=== PATIENT | female | born 1995 | race Caucasian/White ===

== ENCOUNTER 2018-08-23 01:29 | Emergency (ER) | payer BC ==
[2018-08-23 01:44] VITALS: RESP 18
--- NOTE | 2018-08-23 01:46 | ED ---
Psych HPI - General Source: patient, RN notes reviewed, old records reviewed Mode of arrival: ambulatory - History of Present Illness Complaint: suicidal ideation, feels depressed -: unknown Associated Psychiatric Symptoms: depression, suicidal ideation History of same: No Quality: constant Improves With: none Worsens With: none Associated Symptoms: denies other symptoms Treatments Prior to Arrival: none If Self Harm: admits thoughts of self harm, has plan <Gildardo Chapman - Last Filed: 08/23/18 04:38> <Ariel Oden - Last Filed: 08/23/18 10:34> - General Chief Complaint: Psychiatric Symptoms Stated Complaint: Suicidal Time Seen by Provider: 08/23/18 01:37 - History of Present Illness Initial Comments: This is a 23-year-old female the ER for psychiatric evaluation. Patient's brought in by PD petitioning for evaluation by psychiatry, she verbal altercation with Kim MANZO and stated shortly can associate regarding in regards to try to kill herself tonight. She is petition again for psychiatric evaluation. Patient states she is , she does admit to self-harm ( Gildardo Chapman) - Related Data Allergies Allergy/AdvReac Type Severity Reaction Status Date / Time Sulfa (Sulfonamide Allergy Unknown Verified 08/23/18 01:44 Antibiotics) Review of Systems ROS Other: All systems not noted in ROS Statement are negative. <Gildardo Chapman - Last Filed: 08/23/18 04:38> ROS Other: All systems not noted in ROS Statement are negative. <Ariel Oden - Last Filed: 08/23/18 10:34> ROS Statement: Those systems with pertinent positive or pertinent negative responses have been documented in the HPI. Past Medical History Past Medical History: No Reported History History of Any Multi-Drug Resistant Organisms: None Reported Past Surgical History: No Surgical Hx Reported Past Psychological History: No Psychological Hx Reported Smoking Status: Never smoker Past Alcohol Use History: None Reported Past Drug Use History: None Reported <Gildardo Chapman - Last Filed: 08/23/18 04:38> General Exam Limitations: no limitations General appearance: alert, in no apparent distress Head exam: Present: atraumatic, normocephalic, normal inspection Eye exam: Present: normal appearance, PERRL, EOMI. Absent: scleral icterus, conjunctival injection, periorbital swelling ENT exam: Present: normal exam, mucous membranes moist Neck exam: Present: normal inspection. Absent: tenderness, meningismus, lymphadenopathy Respiratory exam: Present: normal lung sounds bilaterally. Absent: respiratory distress, wheezes, rales, rhonchi, stridor Cardiovascular Exam: Present: regular rate, normal rhythm, normal heart sounds. Absent: systolic murmur, diastolic murmur, rubs, gallop, clicks GI/Abdominal exam: Present: soft, normal bowel sounds. Absent: distended, tenderness, guarding, rebound, rigid Extremities exam: Present: normal inspection, full ROM, normal capillary refill. Absent: tenderness, pedal edema, joint swelling, calf tenderness Back exam: Present: normal inspection Neurological exam: Present: alert, oriented X3, CN II-XII intact Psychiatric exam: Present: normal affect, normal mood Skin exam: Present: warm, dry, intact, normal color. Absent: rash <Gildardo Chapman - Last Filed: 08/23/18 04:38> Course <Gildardo Chapman - Last Filed: 08/23/18 04:38> <Ariel Oden - Last Filed: 08/23/18 10:34> Vital Signs 08/23/18 08/23/18 01:38 07:37 Temperature 98.2 F Pulse Rate 97 79 Respiratory 18 18 Rate Blood Pressure 113/69 118/56 O2 Sat by Pulse 100 99 Oximetry - Reevaluation(s) Reevaluation #1: 08/23/18 04:38 Medical clear for psychiatric evaluation (Gildardo Chapman) Medical Decision Making <Gildardo Chapman - Last Filed: 08/23/18 04:38> <Ariel Oden - Last Filed: 08/23/18 10:34> - Medical Decision Making The patient was endorsed me by Dr. Chapman at our shift change pending psychiatric evaluation. Patient was evaluated by psychiatric service she currently is on a resource of renal else she denies suicidal or homicidal ideation to be discharged outpatient planning. The ultrasound did show evidence of an IUP in the early stages. (Ariel Oden) - Lab Data Lab Results 08/23/18 Range/Units 03:07 Urine HCG, Qual Detected (Not Detectd) Disposition <Gildardo Chapman - Last Filed: 08/23/18 04:38> Is patient prescribed a controlled substance at d/c from ED?: No <Ariel Oden - Last Filed: 08/23/18 10:34> Clinical Impression: Depression, Adjustment reaction, Intrauterine Disposition: HOME SELF-CARE Condition: Good Instructions: Depression (ED), Mood Disorders (ED), (ED) Referrals: Breann Gay DO [Primary Care Provider] - 1-2 days
--- NOTE | 2018-08-23 07:43 | US ---
EXAMINATION TYPE: Transabdominal DATE OF EXAM: 01/07/18 COMPARISON: NONE CLINICAL HISTORY: Pain. EXAM PERFORMED: Transvaginal (TV) and Transabdominal (TA) EXAM MEASUREMENTS: GESTATIONAL AGE / DATING Physician Established: not established yet Dates by LMP: (5 weeks/6 days) EDC: 04/19/2019 Dates by First Scan: no previous Dates by Current Scan: no pole seen on today's scan MATERNAL ANATOMY Uterus: 8.1 x 5.4 x 8.0cm Right Ovary: no seen Left Ovary: 2.8 x 2.1 x 3.2cm Small amount of free fluid seen within the post cds. GESTATION / SURVEY CRL: not seen MSD: 1.5cm (5 weeks/6 days) Yolk Sac (normal less than 6mm): 3mm IMPRESSION: Intrauterine gestational sac with yolk sac. This is consistent with early intrauterine of l ess than 6 weeks. Follow-up exam is recommended in 14 days to confirm a living fetus. No evidence of ectopic . Small amount of free fluid in the cul-de-sac.
[2018-08-23 11:03] VITALS: BP 118/66; PULSE 18; TEMP 97.1
== END 2018-08-23 11:01 | disposition home or self-care (01) ==
LOC: EC 01:29
DX: O99.341 Other mental disorders complicating pregnancy, first trimester (principal); F32.9 Major depressive disorder, single episode, unspecified; F43.20 Adjustment disorder, unspecified; Z3A.01 Less than 8 weeks gestation of pregnancy; Z88.2 Allergy status to sulfonamides
CPT/HCPCS: 76801; 76817; 81025; 82075; 99285

== ENCOUNTER 2019-04-04 19:58 | Outpatient (CLI) | payer BC ==
[2019-04-04 22:24] VITALS: BP 134/78; PULSE 76; RESP 18; TEMP 97.3
--- NOTE | 2019-04-21 09:16 | P.MSEPDOC ---
Presenting Problems - Arrival Data Date of Arrival on Unit: 04/04/19 Time of Arrival on Unit: 19:58 Mode of Transport: Ambulatory - Complaint OB-Reason for Admission/Chief Complaint: Possible Onset of Labor Comment: back pain and contractions every 5-10 per pt. Medical History - Information : 1 Para: 0 Term: 0 : 0 Abortions: Spontaneous or Elective: 0 Number of Living Children: 0 - Gestational Age Gestational Age by RAMIN (wks/days): 37 Weeks and 5 Days Review of Systems - Review of Systems Constitutional: No problems Breast: No problems ENT: No problems Cardiovascular: No problems Respiratory: No problems Gastrointestinal: No problems Genitourinary: No problems Musculoskeletal: No problems Neurological: No problems Skin: No problems Vital Signs - Temperature Temperature: 97.3 F Temperature Source: Temporal Artery Scan - Pulse Left Pulse Rate: 76 Pulse Assessment Method: Pulse Oximetry - Respirations Respiratory Rate: 18 Oxygen Delivery Method: Room Air O2 Sat by Pulse Oximetry: 99 - Blood Pressure Right Arm Blood Pressure: 134/78 Blood Pressure Mean: 96 Blood Pressure Source: Automatic Cuff Medical Screen Scoring (Pre) - Cervical Exam Dilation: 0 cm = 0 Effacement: Exam Deferred Membranes: Intact - Uterine Contractions Frequency: N/A Duration: N/A Intensity: N/A - Maternal Vital Signs Maternal Temperature: N/A Maternal Blood Pressure: N/A Signs of Preeclampsia: N/A Maternal Respirations: N/A - Maternal Trauma Maternal Trauma: N/A - Assessment - Baby A Baseline FHR: 130 Heart Rate - NICHD Category: Category I (Normal) = 0 NST: Reactive Position: N/A Station: N/A - Total Score - Baby A Total Score - Baby A: 0 - Total Score - Baby B Total Score - Baby B: 0 - Total Score - Baby C Total Score - Baby C: 0 - Level of Risk - Baby A Level of Risk - Baby A: Low (0-5) - Level of Risk - Baby B Level of Risk - Baby B: Low (0-5) - Level of Risk - Baby C Level of Risk - Baby C: Low (0-5) Physician Notification (Pre) - Physician Notified Physician Notified Date: 04/04/19 Physician Notified Time: 20:06 Physician/Practitioner Notifed:: Dr. Lazcano Spoke With: Dr. Lazcano New Order Received: Yes (recheck cervical exam in 1 hour.) Medical Screen Scoring (Post) - Cervical Exam Dilation: 0 cm = 0 Effacement: Exam Deferred Membranes: Intact - Uterine Contractions Frequency: N/A Duration: N/A Intensity: N/A - Maternal Vital Signs Maternal Temperature: N/A Maternal Blood Pressure: N/A Signs of Preeclampsia: N/A Maternal Respirations: N/A - Pain Assessment Pain Location and Character: Abdomen Pain Intensity: 2 Pain Management Goal: 0 Pain Description: *Acute, Cramping Pain Frequency: Occasional Pain Duration Units: Minutes Pain Behavior: Vocalization Pain Aggravating Factors: Contractions Non-Pharmacological Interventions: Darkened Room, Distraction, Environmental Control, Inactivity, Position/Reposition, Relaxation Technique - Maternal Trauma Maternal Trauma: N/A - Assessment - Baby A Heart Rate: 135 Heart Rate - NICHD Category: Category I (Normal) = 0 NST: Reactive Position: N/A Station: N/A - Total Score Total Score - Baby A: 0 Total Score - Baby B: 0 Total Score - Baby C: 0 - Post Treatment Level of Risk Post Treatment Level of Risk - Baby A: Low (0-5) Post Treatment Level of Risk - Baby B: Low (0-5) Post Treatment Level of Risk - Baby C: Low (0-5) Physician Notification (Post) - Physician Notified Physician Notified Date: 04/04/19 Physician Notified Time: 21:20 Physician/Practitioner Notified:: Dr. Lazcano Spoke With: Dr. Lazcano New Order Received: Yes (follow up instructions) Disposition - Disposition OB Disposition: Discharge to home Discharge Date: 04/04/19 Discharge Time: 21:20 I agree with the RN Medical Screening Exam: Yes Risk & Benefit of care provided described in d/c instruction: Yes Diagnosis: FALSE LABOR AT OR AFTER 37 COMPLETED WEEKS OF GESTATION
== END 2019-04-04 21:20 | disposition home or self-care (01) ==
LOC: FBPOP 19:58
PROVIDERS: ATTEND Obstetrics & Gynecology Obstetrics
DX: O47.1 False labor at or after 37 completed weeks of gestation (principal); Z3A.37 37 weeks gestation of pregnancy
CPT/HCPCS: 59025; 99213

== ENCOUNTER 2019-04-14 06:00 | Inpatient (IN) | payer BC ==
[2019-04-14] MEDS ORDERED: ceFAZolin IN SWFI 2 GM/20 ML SYRINGE IVP ONE (10:17)
[2019-04-14] MEDS ORDERED: CITRIC ACID-SODIUM CITRATE 15 ML CUP PO ONE (10:17)
[2019-04-14] MEDS: LACTATED RINGERS 1,000 ML IV SCH ×3 (10:30→21:23)
[2019-04-14 10:55] LABS: Basophils % (A) 0 %; Eosinophils # (A) 0.1 k/uL (0-0.7); Eosinophils % (A) 1 %; HCT 33.4 % (34.0-46.0); HGB 11.1 gm/dL (11.4-16.0); Lymphocytes # (A) 1.4 k/uL (1.0-4.8); Lymphocytes % (A) 19 %; MCH 29.1 pg (25.0-35.0); MCHC 33.3 g/dL (31.0-37.0); MCV 87.5 fL (80.0-100.0); Mean Platelet Volume 8.7; Monocytes # (A) 0.5 k/uL (0-1.0); Monocytes % (A) 6 %; Neutrophils # (A) 5.5 k/uL (1.3-7.7); Neutrophils % (A) 72 %; Platelet Count 217 k/uL (150-450); RBC 3.82 m/uL (3.80-5.40); RDW 14.1 % (11.5-15.5); WBC 7.7 k/uL (3.8-10.6)
[2019-04-14] MEDS ORDERED: ePHEDrine SULFATE/0.9% NACL/PF 50 MG/5 ML SYRINGE IV ONE (12:03)
[2019-04-14] MEDS ORDERED: NALBUPHINE 10 MG/ML (1 ML AMP) ONE (12:03)
[2019-04-14] MEDS ORDERED: MORPHINE SULFATE (PF) 0.3 MG/0.3 ML SYR ONE (12:03)
[2019-04-14] MEDS ORDERED: LACTATED RINGERS 1,000 ML BAG IV ONE (12:03)
[2019-04-14] MEDS ORDERED: ONDANSETRON 4 MG/2 ML VIAL ONE (12:03)
[2019-04-14] MEDS ORDERED: OXYTOCIN 10 UNIT/ML 1 ML VIAL ONE (12:03)
[2019-04-14] MEDS ORDERED: diphenhydrAMINE 25 MG CAP PO PRN (12:48)
[2019-04-14] MEDS ORDERED: ZOLPIDEM 5 MG TAB PO PRN (12:48)
[2019-04-14] MEDS ORDERED: ONDANSETRON 4 MG/2 ML VIAL IVP PRN (12:48)
[2019-04-14] MEDS ORDERED: METOCLOPRAMIDE 5 MG/ML 2 ML VIAL IVP PRN (12:48)
[2019-04-14] MEDS ORDERED: NALOXONE 0.4 MG/ML 1 ML VIAL IV PRN (12:48)
[2019-04-14] MEDS ORDERED: ACETAMINOPHEN TAB 325 MG TAB PO PRN (12:48)
[2019-04-14] MEDS ORDERED: diphenhydrAMINE 50 MG CAP PO PRN (12:48)
[2019-04-14] MEDS ORDERED: diphenhydrAMINE 50 MG/ML 1 ML VIAL IVP PRN ×2 (12:48)
--- NOTE | 2019-04-14 12:51 | P.HPOB ---
History of Present Illness H&P Date: 04/14/19 Chief Complaint: IUP at 39 and 1/sevenths weeks, breech presentation This is a pleasant 23-year-old 2 para 0010 at 39 and one sevenths weeks that presents to labor and delivery for primary secondary to breech presentation. Patient was seen in the office yesterday on physical exam the lower uterine segment was noted to be empty with no presenting part. Ultrasound confirmed breech presentation. Patient is noting good movement she denies contractions or vaginal bleeding. Her cervix was not dilated yesterday. Patient has been receiving routine care with myself. Patient has a known diagnosis of autism but is high functioning. care has been essentially uncomplicated despite having some social issues. On blood work she has a blood type of A+, rubella immune, hepatitis B surface antigen negative, HIV negative, RPR nonreactive, GBS positive. Review of Systems Constitutional: Denies chills, Denies fatigue, Denies fever Ears, nose, mouth and throat: Denies headache Cardiovascular: Reports leg edema Respiratory: Denies cough, Denies dyspnea Gastrointestinal: Denies constipation, Denies diarrhea, Denies nausea, Denies vomiting Genitourinary: Reports Past Medical History Past Medical History: Asthma History of Any Multi-Drug Resistant Organisms: None Reported Past Surgical History: No Surgical Hx Reported Additional Past Surgical History / Comment(s): wisom teeth extracted in 2010. Past Anesthesia/Blood Transfusion Reactions: No Reported Reaction Past Psychological History: No Psychological Hx Reported Additional Psychological History / Comment(s): autism spectrum disorder Smoking Status: Never smoker Past Alcohol Use History: None Reported Past Drug Use History: None Reported - Past Family History Mother Family Medical History: Cancer Additional Family Medical History / Comment(s): breast Father Family Medical History: Diabetes Mellitus, Hypertension Medications and Allergies Home Medications Medication Instructions Recorded Confirmed Type Pnv 11/Iron Fum/Folic Acid/Om3 1 cap PO DAILY 04/04/19 04/04/19 History [Virt-Loyd Dha Softgel] Allergies Allergy/AdvReac Type Severity Reaction Status Date / Time Sulfa (Sulfonamide Allergy Unknown Verified 04/04/19 20:10 Antibiotics) sulfamethoxazole Allergy FEVER Verified 04/04/19 20:10 [From Bactrim] trimethoprim [From Bactrim] Allergy FEVER Verified 04/04/19 20:10 milk AdvReac Diarrhea Verified 04/04/19 20:11 Exam Osteopathic Statement: *. No significant issues noted on an osteopathic structural exam other than those noted in the History and Physical/Consult. Vital Signs Temp Pulse Resp BP Pulse Ox 04/14/19 10:10 98.2 F 73 18 121/74 99 Intake and Output 04/13/19 04/14/19 04/14/19 22:59 06:59 14:59 Output Total 550 Balance -550 Output: Urine 550 Other: Weight 93.6 kg Tardive physical exam is performed and the state in general this is a well- nourished well-developed female in no acute distress. Her breathing is noted to be nonlabored and her heart has a regular rate and rhythm her abdomen is gravid and appropriate for gestational age. Cervical exam is deferred as she was closed yesterday. heart tones are be category 1 and she is not domingo. Results Result Diagrams: 04/14/19 10:37 Abnormal Lab Results - Last 24 Hours (Table) 04/14/19 Range/Units 10:37 Hgb 11.1 L (11.4-16.0) gm/dL Hct 33.4 L (34.0-46.0) % Assessment and Plan (1) Term Current Visit: Yes Status: Acute Code(s): Z34.90 - ENCNTR FOR SUPRVSN OF NORMAL , UNSP, UNSP TRIMESTER SNOMED Code(s): 25277081 (2) Breech presentation Current Visit: Yes Status: Acute Code(s): O32.1XX0 - MATERNAL CARE FOR BREECH PRESENTATION, UNSP SNOMED Code(s): 2748621
[2019-04-14] MEDS ORDERED: IBUPROFEN IV 800 MG in SODIUM CHLORIDE 0.9% 250 ML IV ONE (12:56)
--- NOTE | 2019-04-14 12:56 | P.OP ---
Date of Procedure: 04/14/19 Preoperative Diagnosis: IUP at 39 and 1/sevenths weeks, breech presentation Postoperative Diagnosis: Same with transverse presentation noted at delivery Procedure(s) Performed: Primary low transverse section Anesthesia: spinal Surgeon: Jewels Lazcano Social Insurance Administrator #1: Amirah Gibbons Estimated Blood Loss (ml): 800 IV fluids (ml): 1,000 Urine output (ml): 100 Pathology: none sent Condition: stable Disposition: observation Indications for Procedure: Unstable lie Operative Findings: Uterus was noted midline septum, normal ovaries were appreciated bilaterally. On entering the abdominal cavity of the lower uterine segment was noted to be empty the head was noted to be in the right lateral corner. Description of Procedure: Patient was taken back to the operating suite where spinal anesthesia was performed by the anesthesia department. She was prepped and draped in normal sterile fashion in the dorsal supine position. A Parra catheter was placed under sterile technique prior to entering the operating suite. A Pfannenstiel skin incision was made with the scalpel and carried through to the underlying layer of fascia. The fascia was incised in the midline and the incision was extended laterally. The anterior aspect of the fascial incision was then grasped koher clamps, elevated and underlying rectus muscles were dissected sharply off of the fascia. The inferior aspect of the fascial incision was grasped grasped koher clamps, elevated and underlying rectus muscle was dissected off sharply once again. The rectus muscles were in the midline and peritoneum was identified and entered. The incision was then extended superiorly and inferiorly with good visualization of the bladder. The bladder blade was then inserted into the abdominal cavity. The vesicouterine peritoneum was identified and a bladder flap was created using sharp dissection. A scalpel was then used to make a hysterotomy incision, and the was then encountered in a transverse presentation converted to a vertex presentation delivered through the hysterotomy incision. The umbilical cord was then doubly clamped and cut and handed off to awaiting RN. The placenta was then delivered manually. The uterus was then delivered from the abdomen and cleared of all clots and debris with a laparotomy sponge. The hysterotomy incision was then closed with 0 Vicryl in a running locked fashion from one lateral edge the other lateral edge a second suture was used to obtain hemostasis. The pelvis was then copiously irrigated the uterus was then returned to the abdomen hemostasis was appreciated once again. The fascial incision was then closed with 0 Vicryl in a running fashion from one lateral edge the other lateral edge. Subcu taste tissue was then irrigated and hemostatic. This was then closed with 3-0 Vicryl. The skin was then closed with 4-0 Vicryl in a subarticular fashion. Steri- Strips and sterile dressings were applied. All counts were correct 2 patient tolerated procedure well and was taken back to her room.
[2019-04-14] MEDS ORDERED: OXYTOCIN 20 UNITS/1000 ML NS 1,000 ML IV SCH (13:00)
[2019-04-14] MEDS ORDERED: ACETAMINOPHEN IV (For NPO) 1,000 MG in EMPTY BAG 1 BAG IVPB ONE (13:30)
[2019-04-14] MEDS: IBUPROFEN 600 MG TAB PO PRN (21:23)
[2019-04-14] MEDS: SENNOSIDES-DOCUSATE SODIUM 1 EACH TAB PO SCH (21:23)
[2019-04-15] MEDS: LACTATED RINGERS 1,000 ML IV SCH ×4 (00:43→19:53)
[2019-04-15] MEDS: IBUPROFEN 600 MG TAB PO PRN ×3 (06:34→19:46)
[2019-04-15 06:58] LABS: Basophils % (A) 0 %; Eosinophils # (A) 0.1 k/uL (0-0.7); Eosinophils % (A) 2 %; HCT 28.8 % (34.0-46.0); Lymphocytes # (A) 1.7 k/uL (1.0-4.8); Lymphocytes % (A) 19 %; MCH 29.3 pg (25.0-35.0); MCHC 33.4 g/dL (31.0-37.0); MCV 87.9 fL (80.0-100.0); Mean Platelet Volume 8.7; Monocytes # (A) 0.4 k/uL (0-1.0); Monocytes % (A) 4 %; Neutrophils # (A) 6.2 k/uL (1.3-7.7); Neutrophils % (A) 73 %; Platelet Count 176 k/uL (150-450); RBC 3.27 m/uL (3.80-5.40); RDW 13.9 % (11.5-15.5); WBC 8.5 k/uL (3.8-10.6)
[2019-04-15 07:27] LABS: HGB 9.6 gm/dL (11.4-16.0)
[2019-04-15] MEDS: SENNOSIDES-DOCUSATE SODIUM 1 EACH TAB PO SCH ×2 (07:54→19:45)
[2019-04-15] MEDS: HYDROcodone/APAP 5-325MG 1 EACH TAB PO PRN ×3 (07:55→22:52)
--- NOTE | 2019-04-15 08:22 | P.PNOBGPC ---
Subjective - Subjective Principal diagnosis: POD 1 LTCS Interval history: Patient is feeling well postoperatively. She is ambulating and voiding without difficulty. She states her pain is well-controlled. She denies concerns. She is breast-feeding without difficulty. Her lochia is minimal. Patient reports: Reports appetite normal, Reports voiding normally, Reports pain well controlled, Reports ambulating normally : doing well Objective - Vital Signs Latest vital signs: Vital Signs Temp Pulse Pulse Resp BP Pulse Ox 04/15/19 04:00 97.6 F 145 H 16 04/15/19 00:00 98.0 F 68 18 121/72 04/14/19 20:00 98.3 F 82 13 122/53 04/14/19 16:00 98.3 F 64 16 125/66 98 04/14/19 14:45 65 16 124/67 04/14/19 14:15 63 16 118/55 100 04/14/19 13:45 96.4 F L 68 16 135/62 99 04/14/19 13:30 71 16 134/61 100 04/14/19 13:15 80 16 129/77 98 04/14/19 13:00 77 16 125/80 98 04/14/19 12:45 96.7 F L 82 18 117/55 98 04/14/19 10:10 98.2 F 73 18 121/74 99 Intake and Output 04/14/19 04/15/19 04/15/19 22:59 06:59 14:59 Intake Total 400 800 Output Total 800 Balance 400 0 Intake: IV 400 ACETAMINOPHEN IV (For NPO 400 ) 1,000 mg In Empty Bag 1 bag @ 400 mls/hr IVPB ONCE ONE Rx#:[id number] Oral 800 Output: Urine 800 Other: Voiding Method Indwelling Catheter Indwelling Catheter # Voids 1 - Exam Extremities: Present: normal, edema Abdomen: Present: normal appearance, soft Incision: Present: normal, intact Uterus: Present: normal, firm - Labs Labs: Abnormal Lab Results - Last 24 Hours (Table) 04/14/19 04/15/19 Range/Units 10:37 06:30 RBC 3.27 L (3.80-5.40) m/uL Hgb 11.1 L 9.6 L D (11.4-16.0) gm/dL Hct 33.4 L 28.8 L (34.0-46.0) % Assessment and Plan (1) Term Current Visit: Yes Status: Acute Code(s): Z34.90 - ENCNTR FOR SUPRVSN OF NORMAL , UNSP, UNSP TRIMESTER SNOMED Code(s): 95740667 (2) Breech presentation Current Visit: Yes Status: Acute Code(s): O32.1XX0 - MATERNAL CARE FOR BREECH PRESENTATION, UNSP SNOMED Code(s): 1300478 (3) S/P section Current Visit: Yes Status: Acute Code(s): Z98.891 - HISTORY OF UTERINE SCAR FROM PREVIOUS SURGERY SNOMED Code(s): 264461245 Plan: We'll continue routine postoperative care and anticipate discharge home tomorrow.
[2019-04-15] MEDS ORDERED: PRENATAL VIT-IRON-FOLIC ACID 1 EACH CAP PO SCH (09:00)
--- NOTE | 2019-04-15 13:01 | P.PN ---
Progress Note - Text Progress Note Date: 04/15/19 Postoperative day 1 status post section under spinal anesthesia, and intrathecal morphine given for postoperative analgesia, patient doing well, there is no anesthesia related complications, Patient had no headache, vital signs stable , Assessment and plan= postop day 1 status post , doing well there is no anesthesia related complication.
[2019-04-16 00:10] VITALS: RESP 16
[2019-04-16] MEDS: IBUPROFEN 600 MG TAB PO PRN ×3 (03:04→14:57)
[2019-04-16] MEDS: HYDROcodone/APAP 5-325MG 1 EACH TAB PO PRN ×2 (05:30→13:03)
[2019-04-16 08:19] VITALS: BP 121/76; PULSE 75; TEMP 98.1
[2019-04-16] MEDS: SENNOSIDES-DOCUSATE SODIUM 1 EACH TAB PO SCH (08:41)
--- NOTE | 2019-04-16 08:44 | P.DS ---
Providers Date of admission: 04/14/19 10:04 Expected date of discharge: 04/16/19 Attending physician: Jewels Lazcano Primary care physician: Stated None - Discharge Diagnosis(es) (1) Term Current Visit: Yes Status: Acute (2) Breech presentation Current Visit: Yes Status: Acute (3) S/P section Current Visit: Yes Status: Acute Hospital Course: This is a pleasant 23-year-old 2 para 0010 that presented to labor and delivery at 39 and one sevenths weeks and breech presentation. Patient was taken for primary secondary to malpresentation. was performed without difficulty for further details on the please see the operative report. Patient's postoperative course has been uneventful. She is ambulating and voiding without difficulty. She is tolerating a regular diet without nausea or vomiting. She is proceeding without difficulty. She states her pain is controlled with oral pain medication she denies concerns currently and wishes discharge home Patient Condition at Discharge: Good Plan - Discharge Summary New Discharge Prescriptions: No Action Pnv 11/Iron Fum/Folic Acid/Om3 [Virt-Loyd Dha Softgel] 1 cap PO DAILY Discharge Medication List Pnv 11/Iron Fum/Folic Acid/Om3 [Virt-Loyd Dha Softgel] 1 cap PO DAILY 04/04/19 [History] Follow up Appointment(s)/Referral(s): Jewels Lazcano DO [Doctor of Osteopathic Medicine] - 2 Weeks Patient Instructions/Handouts: (DC), (GEN) Discharge Disposition: HOME SELF-CARE
== END 2019-04-16 15:02 | disposition home or self-care (01) | DRG 787 ==
LOC: 4FBP 10:04
PROVIDERS: ADMIT Obstetrics & Gynecology Obstetrics; ATTEND Obstetrics & Gynecology Obstetrics
PROC: 10D00Z1 Extraction of Products of Conception, Low, Open Approach (ICD-10-PCS; principal; 2019-04-14 12:13)
DX: O32.1XX0 Maternal care for breech presentation, not applicable or unspecified (principal); F84.0 Autistic disorder; O32.2XX0 Maternal care for transverse and oblique lie, not applicable or unspecified; O99.344 Other mental disorders complicating childbirth; Z3A.39 39 weeks gestation of pregnancy; Z37.0 Single live birth; O99.824 Streptococcus B carrier state complicating childbirth; O99.52 Diseases of the respiratory system complicating childbirth; J45.909 Unspecified asthma, uncomplicated; Z79.899 Other long term (current) drug therapy; Z88.2 Allergy status to sulfonamides; Z91.011 Allergy to milk products; Z80.3 Family history of malignant neoplasm of breast; Z83.3 Family history of diabetes mellitus; Z82.49 Family history of ischemic heart disease and other diseases of the circulatory system
CPT/HCPCS: 85025; 86850; 86900; 86901